=== PATIENT | female | born 1985 | race Caucasian/White ===

== ENCOUNTER 2021-05-12 00:21 | Emergency (ER) | payer OTHER ==
[2021-05-12] MEDS ORDERED: ZYRTEC10 MG PO (01:15)
[2021-05-12] MEDS ORDERED: BENADRYL 25MG C25 MG PO (01:15)
== END 2021-05-12 01:20 | disposition home or self-care (01) ==
LOC: ER1 00:21
DX: J30.9 Allergic rhinitis, unspecified (principal); E11.9 Type 2 diabetes mellitus without complications; F17.210 Nicotine dependence, cigarettes, uncomplicated
CPT/HCPCS: 99283

== ENCOUNTER 2021-06-16 20:18 | Emergency (ER) | payer OTHER ==
[~2021-06-16 20:18] MED LIST: BENADRYL 25MG C25 MG PO; ZYRTEC10 MG PO
[2021-06-16 21:56] LABS: HEMOGLOBIN 12.7 gm/dl (12.3-15.3); RED BLOOD COUNT 4.68 M/UL (4.00-5.10); WHITE BLOOD COUNT 9.5 K/UL (4.5-11.0)
[2021-06-16 22:22] LABS: BUN/CREATININE RATIO 14 (0-10)
[2021-06-16] MEDS ORDERED: Magic Mouth Wash PO (23:18)
== END 2021-06-16 23:45 | disposition home or self-care (01) ==
LOC: ER1 20:18
PROVIDERS: Physician Assistant Medical
DX: R13.10 Dysphagia, unspecified (principal); F17.210 Nicotine dependence, cigarettes, uncomplicated; E11.9 Type 2 diabetes mellitus without complications
CPT/HCPCS: 70490; 80053; 85025; 87070; 87102; 87205; 99283

== ENCOUNTER 2021-06-22 18:48 | Emergency (ER) | payer OTHER ==
[~2021-06-22 18:48] MED LIST changes: +Magic Mouth Wash PO
== END 2021-06-22 21:15 | disposition home or self-care (01) ==
LOC: ER1 18:48
DX: R13.10 Dysphagia, unspecified (principal); E11.9 Type 2 diabetes mellitus without complications; F17.200 Nicotine dependence, unspecified, uncomplicated; Z98.818 Other dental procedure status
CPT/HCPCS: 99283

== ENCOUNTER 2021-08-06 18:46 | Emergency (ER) | payer OTHER ==
[2021-08-06 21:07] LABS: HEMOGLOBIN 12.5 gm/dl (12.3-15.3); RED BLOOD COUNT 4.68 M/UL (4.00-5.10); WHITE BLOOD COUNT 9.4 K/UL (4.5-11.0)
[2021-08-06 21:31] LABS: BUN/CREATININE RATIO 19 (0-10)
[2021-08-06] MEDS ORDERED: CLARITIN10 M2 PO (22:21)
[2021-08-06] MEDS ORDERED: AUGMENTIN 875-1 EACH PO (22:21)
== END 2021-08-06 23:00 | disposition home or self-care (01) ==
LOC: ER1 18:46
PROVIDERS: Physician Assistant
DX: J32.9 Chronic sinusitis, unspecified (principal); E11.9 Type 2 diabetes mellitus without complications; Z79.4 Long term (current) use of insulin; F17.210 Nicotine dependence, cigarettes, uncomplicated; R05.9 Cough, unspecified
CPT/HCPCS: 70486; 71046; 80053; 85025; 99284

== ENCOUNTER → 2021-08-09 | Outpatient (CLI) | payer OTHER ==
[~2021-08-09] MED LIST changes: +AUGMENTIN 875-1 EACH PO; +CLARITIN10 M2 PO
== END ==
LOC: HEART 5 14:56
DX: R06.02 Shortness of breath (principal)
CPT/HCPCS: 94010

== ENCOUNTER 2021-12-15 01:17 | Emergency (ER) | payer OTHER ==
[2021-12-15 02:45] LABS: HEMOGLOBIN 11.2 gm/dl (12.3-15.3); RED BLOOD COUNT 4.38 M/UL (4.00-5.10); WHITE BLOOD COUNT 9.8 K/UL (4.5-11.0)
[2021-12-15 03:16] LABS: BUN/CREATININE RATIO 7 (0-10)
== END 2021-12-15 04:35 | disposition home or self-care (01) ==
LOC: ER1 01:17
PROVIDERS: Family Medicine
DX: R07.89 Other chest pain (principal); R09.81 Nasal congestion; E11.9 Type 2 diabetes mellitus without complications; Z79.4 Long term (current) use of insulin
CPT/HCPCS: 71045; 80053; 82550; 82553; 83880; 84484; 85025; 93005; 99285

== ENCOUNTER 2022-03-23 16:49 | Emergency (ER) | payer OTHER | END 2022-03-23 19:30 | disposition home or self-care (01) | LOC: ER1 16:49 | DX: J02.9 Acute pharyngitis, unspecified (principal); R09.81 Nasal congestion; Z20.822 Contact with and (suspected) exposure to COVID-19; E10.9 Type 1 diabetes mellitus without complications; F17.210 Nicotine dependence, cigarettes, uncomplicated | CPT/HCPCS: 87081; 87880; 99283; U0002 ==

== ENCOUNTER → 2022-04-12 | Outpatient (CLI) | payer OTHER | LOC: CT 14:30 | DX: R13.10 Dysphagia, unspecified (principal) | CPT/HCPCS: 36415; 70491; 82565; 84520; Q9967 ==